=== PATIENT | male | born 1945 | race Caucasian/White ===

== ENCOUNTER 2016-07-06 19:38 | Emergency (ER) | payer OTHER ==
--- NOTE | ~2016-07-06 | HOLTER ---
Holter Monitor [facility] [address] [place]. [address] NAME: CHETAN SOLER : 43 STATUS : DEP PAT#: [id number] AGE: 70 ADM/REG DATE : 07/06/16 MR#: [id number] REPORT SERV DATE: 07/11/16 DICTATED BY: MITRA BURNS DATE: 07/11/16 REPORT STATUS : Draft TRANSCRIBED BY: ZAHRAA DATE: 07/11/16 24-HOUR HOLTER MONITOR REPORT RESPONSIBLE PROVIDER: Ceasar Diaz MD PRIMARY DISPATCHER REFINERY: Devan Alejandra M.D. INDICATIONS: This 70-year-old gentleman with tachycardia. 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 RHYTHM: The baseline rhythm is sinus rhythm with heart rate from 60 to 110 beats per minute recorded. Average heart rate 76 beats per minute and sinus. Very small P waves, but still visible, noted. VENTRICULAR ARRHYTHMIA: There are two rare PVCs. SUPRAVENTRICULAR ARRHYTHMIA: There are eight rare PACs. No pauses. SYMPTOMS: No symptoms. CONCLUSION: Normal Holter monitor. Please see attached worksheet for further details. Definitions for premature beat frequency Approximately Rare <100 <0.1 % Occasional 100-1500 0.1 - 1.5 % Frequent >1500 >1.5 % OBRUNO/ZAHRAA Mitra Burns M.D. / [id number]
[2016-07-06 14:11] LABS: BASOPHILS 0.4 %; BASOPHILS ABSOLUTE 0.04 10/3/uL (0.0-0.16); EOSINOPHILS 1.5 %; EOSINOPHILS ABSOLUTE 0.17 10/3/uL (0.0-0.53); ER CBC TAT 0 Hrs 07 Mins; HEMOGLOBIN 13.8 g/dL (13.6-17.8); IMMATURE GRANULOCYTES 0.3 %; IMMATURE GRANULOCYTES ABSOLUTE 0.03 10/3/uL (0.0-0.11); LYMPHOCYTES 19.6 %; LYMPHOCYTES ABSOLUTE 2.21 10/3/uL (0.67-4.30); MEAN CORPUS HGB CONC 33.7 g/dL (32.0-36.0); MEAN CORPUSCULAR HEMOGLOB 27.3 pg (26.0-34.0); MEAN PLATELET VOLUME 9.9 fL (9.2-13.0); MONOCYTES 8.5 %; MONOCYTES ABSOLUTE 0.96 10/3/uL (0.21-1.20); NEUTROPHILS 69.7 %; NEUTROPHILS ABSOLUTE 7.84 10/3/uL (2.02-8.40); RBC DISTRIBUTION WIDTH 13.1 % (12.0-16.0); RED CELL COUNT 5.06 10/6/uL (4.7-6.1); WHITE BLOOD CELLS 11.3 10/3/uL (4.5-10.5)
[2016-07-06 14:12] LABS: MANUAL DIFF NO %; PLATELET COUNT 261 10/3/uL (150-400)
[2016-07-06 14:21] LABS: PARTIAL THROMBO TIME 29.8 SEC (22.5-37.2); PROTIME (NOT ORD) 13.1 SEC (12.0-14.5)
[2016-07-06 14:27] LABS: BUN (BLOOD UREA NITROGEN) 15 MG/DL (6-23); CALCIUM, SERUM 8.9 MG/DL (8.5-10.4); CHEST PAIN PROFILE TAT 0 Hrs 23 Mins; CHLORIDE, SERUM 104 MMOL/L (96-112); CO2 (CARBON DIOXIDE) 26 MMOL/L (24-34); CREATININE 1.21 MG/DL (0.70-1.30); GFR AFRICAN AMERICAN 69 ML/MIN (>=60); GFR NON AFRICAN AMERICAN 60 ML/MIN (>=60); GLUCOSE, SERUM 137 MG/DL (60-99); POTASSIUM, SERUM 4.1 MMOL/L (3.5-5.3); SODIUM, SERUM 140 MMOL/L (135-148); TROPONIN I <0.02 NG/ML (<0.05)
[~2016-07-06 19:38] MED LIST: ALTA2.5 PO; ASAB PO; BROMELAIN PO; CENTRUM PO; CENTRUM TAB1 TAB PO; CINNAMON PO; CIP5 PO; CO Q-10200 MG PO; FISH OIL OTC PO; FISH-EPA1000 MG PO; FLOMAX4 PO; LIPITOR40 PO; LIQUID TEARS OPH; LOP25 PO; MULTIPLE VIT PO; NITROSTAT0.4 MG SL; NORCO1 TA1 PO; PLAVIX PO; PR25 PO; PRAVAC PO; PROTONIX PO; PYR200 PO; T PO; TURMERIC OTC PO; [UNRECOGNIZED DRUG - REMARK] PO
[2017-01-22] MEDS ORDERED: PROTONIX PO (15:25)
[2017-01-22] MEDS ORDERED: HALF81 PO (16:00)
== END 2016-07-06 19:45 | disposition home or self-care (01) ==
LOC: ER 19:38
PROVIDERS: Nurse Practitioner
DX: R00.2 Palpitations (principal); Z87.891 Personal history of nicotine dependence; I25.2 Old myocardial infarction; I10 Essential (primary) hypertension; Z95.5 Presence of coronary angioplasty implant and graft; I25.10 Atherosclerotic heart disease of native coronary artery without angina pectoris; Z88.5 Allergy status to narcotic agent; Z88.8 Allergy status to other drugs, medicaments and biological substances; Z79.899 Other long term (current) drug therapy
CPT/HCPCS: 71010; 71275; 80048; 83735; 84484; 85025; 85610; 85730; 93005; 93225; 99285; Q9967